=== PATIENT | male | born 1970 ===

== ENCOUNTER 2022-12-09 20:13 | Emergency (ER) | payer SELFPAY ==
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
[2022-12-09] MEDS ORDERED: NA CHLORIDE 0.9% 1,000 ML ONE (21:08)
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
[2022-12-09 21:18] LABS: Absolute Lymphocytes (CBC) 1.7 K/uL (0.7-4.9); Hematocrit 41.9 % (39.6-49.0); Lymphocytes % 9.1 % (15.3-44.8); MCV 91.9 fL (80-100); MPV 7.6 fL (7.6-11.3); Platelets 305 thou/uL (152-406); RBC Red Blood Cell Count 4.55 M/uL (4.33-5.43)
--- NOTE | 2022-12-09 21:36 | RAD REPORT ---
EXAM DESCRIPTION: RAD - Chest Single View - 12/09/2022 9:10 pm CLINICAL HISTORY: syncope COMPARISON: CHEST PA AND LAT 2 VIEW dated 08/09/2013 FINDINGS: Lines: None. Lungs: No evidence of edema or pneumonia. Pleural: No significant pleural effusions or pneumothorax. Cardiac: The heart size is within normal limits. Mediastinum: Within normal limits. Bones: No acute fractures. Other: None IMPRESSION: No acute cardiopulmonary disease.
[2022-12-09 21:38] LABS: Albumin 3.6 g/dL (3.4-5.0); Bilirubin Direct 0.2 mg/dL (0-0.2); Bilirubin Indirect, Calculated 0.5 mg/dL (0.2-0.8); Bilirubin Total 0.7 mg/dL (0.2-1.0); Potassium 3.3 mEq/L (3.5-5.1); Protein, Total 7.4 g/dL (6.4-8.2)
[2022-12-09 21:39] LABS: Troponin High Sensitivity 6.7 pg/mL (<58.9)
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
[2022-12-09 23:03] VITALS: BP 132/92; TEMP 98.7; O2SAT 98
--- NOTE | 2022-12-12 07:57 | EKG ---
Test Date: 2022-12-09 Test Time: 21:25:44 Sales Support Associate: KIP MEASUREMENT RESULTS: Intervals: Rate: 64 NC: 182 QRSD: 80 QT: 380 QTc: 392 [place]: P: 58 NC: 182 QRS: 69 T: 60 INTERPRETIVE STATEMENTS: Sinus rhythm with marked sinus arrhythmia Otherwise normal ECG No previous ECG available for comparison Electronically Signed On 12-12-22 07:52:19 CDT by Hugo Chavarria
== END 2022-12-09 22:37 | disposition home or self-care (01) ==
LOC: ER 20:13
DX: R55 Syncope and collapse (principal); R51.9 Headache, unspecified
CPT/HCPCS: 36415; 70450; 71045; 72125; 80048; 80076; 82550; 83735; 84484; 85025; 93005; 99284; J7030